=== PATIENT | female | born 1970 | race American Indian/Alaskan Native ===

== ENCOUNTER 2016-12-15 19:19 | Emergency (ER) | payer SELFPAY ==
[2016-12-15] MEDS ORDERED: TYLENOL ONE (19:45)
[2016-12-15] MEDS ORDERED: TYLENOL PO ONE (19:48)
[2016-12-15 19:53] VITALS: BP 126/68
== END 2016-12-15 21:51 | disposition left against medical advice (07) ==
LOC: ED 19:19
DX: M25.521 Pain in right elbow (principal); M25.511 Pain in right shoulder; V49.49XA Driver injured in collision with other motor vehicles in traffic accident, initial encounter
CPT/HCPCS: 81025

== ENCOUNTER 2016-12-16 07:15 | Emergency (ER) | payer OTHER ==
[2016-12-16 07:33] VITALS: BP 132/87
[2016-12-16] MEDS ORDERED: MOTRIN PO ONE (07:45)
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
== END 2016-12-16 09:12 | disposition home or self-care (01) ==
LOC: ED 07:15
DX: S13.4XXA Sprain of ligaments of cervical spine, initial encounter (principal); S16.1XXA Strain of muscle, fascia and tendon at neck level, initial encounter; S46.911A Strain of unspecified muscle, fascia and tendon at shoulder and upper arm level, right arm, initial encounter; S56.911A Strain of unspecified muscles, fascia and tendons at forearm level, right arm, initial encounter; V49.49XA Driver injured in collision with other motor vehicles in traffic accident, initial encounter; Y93.9 Activity, unspecified; Y92.9 Unspecified place or not applicable; Y99.9 Unspecified external cause status
CPT/HCPCS: 70450; 72040; 99284